=== PATIENT | female | born 1955 | race Caucasian/White ===

== ENCOUNTER 2018-12-02 16:48 | Emergency (ER) | payer MEDICARE, OTHER ==
[~2018-12-02] VITALS: Ht 167.6 cm; Wt 57.6 kg
--- NOTE | 2018-12-02 17:15 | NUR ---
JOEY FROM [facility] C/O HEMATURIA AND FAILURE TO THRIVE x 2 DAYS. PATIENT A/OX2-3 UZBEK SPEAKING. BREATHING EVEN AND UNLABORED, NO SOB NOTED. AWAITING FOR MD COLE.
[2018-12-02] MEDS ORDERED: IV NS 0.9% 500 ML BAG IV ONE (17:30)
[2018-12-02 17:33] LABS: BASOPHILS % (AUTO) 0.7 % (0.0-2.0); EOSINOPHILS % (AUTO) 1.6 % (0.0-6.0); HEMATOCRIT 39 % (33-45); HEMOGLOBIN 13.3 g/dL (11.5-14.8); LYMPHOCYTES # (AUTO) 1.6 /CMM (0.8-4.8); LYMPHOCYTES % (AUTO) 37.6 % (20.0-44.0); MEAN CORPUSCULAR HGB CONC 34 g/dl (31.0-36.0); MEAN CORPUSCULAR VOLUME 99 fL (82-100); MONOCYTES # (AUTO) 0.3 /CMM (0.1-1.30); MONOCYTES % (AUTO) 8.5 % (2.0-12.0); NEUTROPHILS # (AUTO) 2.1 /CMM (1.8-8.9); NEUTROPHILS % (AUTO) 51.6 % (43.0-81.0); PLATELET COUNT (AUTO) 147 /CMM (150-450); RED BLOOD CELL COUNT(AUTO) 3.92 MIL/uL (4.0-5.2); WHITE BLOOD COUNT (AUTO) 4.1 K/uL (4.3-11.0)
[2018-12-02 17:39] LABS: CALCIUM, SERUM 9.9 mg/dL (8.5-10.1); CARBON DIOXIDE 20 mmol/L (21-32); CHLORIDE 105 mmol/L (98-107); CREATININE 1.6 mg/dL (0.6-1.3); GLUCOSE 108 mg/dL (74-106); POTASSIUM 4.3 mmol/L (3.5-5.1); SODIUM SERUM 136 mmol/L (136-145); UREA NITROGEN, BLOOD 29 mg/dL (7-18)
[2018-12-02 17:44] LABS: ALANINE AMINOTRANSFERASE 60 U/L (12-78); ALBUMIN 3.9 g/dL (3.4-5.0); ALKALINE PHOSPHATASE 123 U/L (46-116); ASPARTATE AMINOTRANSFERASE 95 U/L (15-37); BILIRUBIN,DIRECT 0.7 mg/dL (0.0-0.2); BILIRUBIN,TOTAL 1.4 mg/dL (0.2-1.0); LIPASE 168 U/L (73-393); TOTAL PROTEIN, SERUM 10.9 g/dL (6.4-8.2)
[2018-12-02 17:55] LABS: APPEARANCE,URINE Clear (CLEAR); BILIRUBIN,URINE MODERATE (NEGATIVE); BLOOD, URINE Trace-intact Ery/uL (NEGATIVE); COLOR,URINE Yellow (YELLOW); KETONES,URINE Trace (NEGATIVE); LEUKOCYTE ESTERASE ,URINE Trace (NEGATIVE); NITRITE, URINE Negative (NEGATIVE); PROTEIN,URINE 30 mg/dl (NEGATIVE); UGLUCOSE Negative (NEGATIVE)
[2018-12-02 18:07] LABS: BACTERIA,URINE Few /HPF (None Seen); MUCUS,URINE Many /LPF (None Seen); SQUAMOUS EPITHELIAL CELL,UR Moderate /HPF (None Seen); URINE AMORPHOUS URATE Many /HPF (None Seen)
--- NOTE | 2018-12-02 18:09 | NUR ---
CALLED FOR DR ZIEGLER
--- NOTE | 2018-12-02 19:23 | NUR ---
[facility] CAME AND GIVEN REPORT, PATIENT IS STABLE FOR TRANSFER BACK TO FACILITY. VSS. NAD. PERIPHERAL IV REMOVED. PATIENT LEFT THE FACILITY VIA AMBULANCE.
[2018-12-02 19:26] VITALS: BP 130/96
== END 2018-12-02 19:26 ==
LOC: ER 17:00
DX: R53.1 Weakness (principal); E86.0 Dehydration; N28.9 Disorder of kidney and ureter, unspecified; R63.0 Anorexia; K21.9 Gastro-esophageal reflux disease without esophagitis
CPT/HCPCS: 36415; 71045; 73130; 80048; 80076; 81001; 83690; 84484; 85025; 87086; 96360; 99285; A4606; J7040; 81000-TC

== ENCOUNTER 2019-05-12 10:11 | Inpatient (IN) | payer MEDICARE, OTHER ==
[2019-05-12] MEDS ORDERED: PIPERACILLIN /TAZOBACTAM 3.375 G in IV D5W 50 ML IV ONE (10:30)
[2019-05-12] MEDS ORDERED: IV NS 0.9% 1,000 ML BAG IV ONE ×2 (10:30→17:30)
[2019-05-12] MEDS ORDERED: PANTOPRAZOLE 40 MG VIAL IV ONE (10:30)
[2019-05-12] MEDS ORDERED: CRAN3875 PO (11:20)
[2019-05-12] MEDS ORDERED: VORI50TA3 PO (11:20)
[2019-05-12] MEDS ORDERED: CHOL100040 PO (11:20)
[2019-05-12] MEDS ORDERED: OMEG1CAP55 PO (11:20)
[2019-05-12] MEDS ORDERED: DEXT15DR6 OP (11:20)
[2019-05-12] MEDS ORDERED: DARU800T2 PO (11:20)
[2019-05-12] MEDS ORDERED: TYL2T PO (11:20)
[2019-05-12] MEDS ORDERED: LATA2.5D2 OP (11:20)
[2019-05-12] MEDS ORDERED: MAGN400O6 PO (11:20)
[2019-05-12] MEDS ORDERED: MECL-102 PO (11:20)
[2019-05-12] MEDS ORDERED: FOLI1TAB16 PO (11:20)
[2019-05-12] MEDS ORDERED: SODIUM CHORIDE PO (11:20)
[2019-05-12] MEDS ORDERED: LACT1CAP61 PO (11:20)
[2019-05-12] MEDS ORDERED: CALC500T89 PO (11:20)
[2019-05-12] MEDS ORDERED: CITA10TA17 PO (11:20)
[2019-05-12] MEDS ORDERED: HYDR453.3 TP (11:20)
[2019-05-12] MEDS ORDERED: EMTR1TAB12 PO (11:20)
[2019-05-12] MEDS ORDERED: BIOT10004 PO (11:20)
[2019-05-12] MEDS ORDERED: FAMO20TA8 PO (11:20)
[2019-05-12] MEDS ORDERED: MULT-661 PO (11:20)
[2019-05-12] MEDS ORDERED: MAGN400T26 PO (11:20)
[2019-05-12] MEDS ORDERED: LEVO150T8 PO (11:20)
[2019-05-12] MEDS ORDERED: CRAN425C6 PO (11:20)
[2019-05-12] MEDS ORDERED: RITO100T PO (11:20)
[2019-05-12] MEDS ORDERED: ONDA4TAB5 PO (11:20)
[2019-05-12] MEDS ORDERED: ETOMIDATE 2 MG/ML VIAL IV ONE ×2 (12:40→15:00)
[2019-05-12] MEDS ORDERED: SUCCINYLCHOLINE CHLORIDE 20 MG/ML VIAL IV ONE ×2 (12:40→15:00)
[2019-05-12] MEDS ORDERED: MECLIZINE HCL 25 MG TABLET PO PRN (13:00)
[2019-05-12] MEDS ORDERED: MAGNESIUM HYDROXIDE 30 ML UDC PO PRN (13:00)
[2019-05-12] MEDS ORDERED: HYDROCORTISONE 2.5% CREAM 28.4 GM TUBE TP PRN (13:00)
[2019-05-12] MEDS ORDERED: ACETAMINOPHEN 325 MG TABLET PO PRN (13:00)
[2019-05-12] MEDS: PROPOFOL 100 ML IV PRN ×2 (13:29→21:19)
[2019-05-12] MEDS ORDERED: LACTULOSE 10 G/15 ML UDC (PYXIS) PO PRN (13:30)
[2019-05-12] MEDS ORDERED: PROPOFOL 100 ML ONE (13:30)
[2019-05-12] MEDS ORDERED: RITONAVIR 100 MG CAPSULE PO SCH (14:30)
[2019-05-12] MEDS: SODIUM CHLORIDE 1000 MG TABLET PO SCH (16:42)
[2019-05-12] MEDS ORDERED: IV NS 0.9% 1,000 ML BAG IV PRN (17:30)
[2019-05-12] MEDS: IV NS 0.9% 1,000 ML IV PRN (17:53)
[2019-05-12] MEDS: PIPERACILLIN /TAZOBACTAM 3.375 G in IV D5W 100 ML IV SCH (17:59)
[2019-05-12] MEDS ORDERED: LACTULOSE 10 G/15 ML UDC (PYXIS) NG SCH (20:00)
[2019-05-12] MEDS ORDERED: FEE PK DOSING 1 MIN EA MC ONE (20:28)
[2019-05-12] MEDS ORDERED: SODIUM BICARBONATE SYR 50 MEQ/50 ML DISP.SYRIN IV ONE (20:30)
[2019-05-12] MEDS ORDERED: VANCOMYCIN 0.75 GM in IV D5W 250 ML IV SCH (21:00)
[2019-05-12] MEDS ORDERED: LACTULOSE 10 G/15 ML UDC (PYXIS) PO SCH (21:00)
[2019-05-12] MEDS ORDERED: VORICONAZOLE 200 MG TABLET PO SCH (21:00)
[2019-05-12] MEDS: NOREPINEPHRINE 8 MG in IV D5W 500 ML IV PRN (21:16)
[2019-05-12] MEDS ORDERED: VANCOMYCIN 1 GM VIAL ONE (21:54)
[2019-05-12] MEDS ORDERED: LATANOPROST EYE DROP 0.005% 2.5 ML BOTTLE EACHEYE SCH (22:00)
[2019-05-12] MEDS: LACTULOSE 10 G/15 ML UDC (PYXIS) PR SCH (23:12)
[2019-05-13] MEDS ORDERED: LACTULOSE 10 G/15 ML UDC (PYXIS) PR SCH (02:00)
[2019-05-13] MEDS: PIPERACILLIN /TAZOBACTAM 3.375 G in IV D5W 100 ML IV SCH ×3 (02:43→18:11)
[2019-05-13] MEDS ORDERED: NOREPINEPHRINE 4 MG/4 ML AMPUL IV ONE ×2 (03:03→06:58)
[2019-05-13] MEDS: NOREPINEPHRINE 8 MG in IV D5W 500 ML IV PRN ×3 (03:08→10:06)
[2019-05-13] MEDS: LACTULOSE 10 G/15 ML UDC (PYXIS) PR SCH ×3 (05:04→18:12)
[2019-05-13] MEDS: IV NS 0.9% 1,000 ML IV PRN (06:15)
[2019-05-13] MEDS ORDERED: LEVOTHYROXINE SODIUM 75 MCG TABLET PO SCH (07:30)
[2019-05-13] MEDS: DOPamine 800 MG in IV D5W 250 ML IV PRN ×2 (08:43→18:11)
[2019-05-13] MEDS: PROPOFOL 100 ML IV PRN ×3 (08:50→20:14)
[2019-05-13] MEDS ORDERED: CITALOPRAM HYDROBROMIDE 10 MG TABLET PO SCH (09:00)
[2019-05-13] MEDS ORDERED: IV NS 0.9% 500 ML IV ONE (09:00)
[2019-05-13] MEDS ORDERED: FAMOTIDINE (20 MG) 20 MG TABLET PO SCH (09:00)
[2019-05-13] MEDS ORDERED: MAGNESIUM OXIDE 400 MG TABLET PO SCH (09:00)
[2019-05-13] MEDS ORDERED: Sodium Bicarbonate 100 MEQ in IV D5W 1,000 ML IV PRN ×2 (09:00→16:30)
[2019-05-13] MEDS ORDERED: EMTRICITABINE/TENOFOVIR 1 TAB PO SCH (09:00)
[2019-05-13] MEDS ORDERED: PANTOPRAZOLE 40 MG VIAL IV SCH (09:00)
[2019-05-13] MEDS ORDERED: FOLIC ACID 1 MG TABLET PO SCH (09:00)
[2019-05-13] MEDS ORDERED: CALCIUM CARBONATE (1250) 500 MG TABLET PO SCH (09:00)
[2019-05-13] MEDS: SODIUM CHLORIDE 1000 MG TABLET PO SCH ×2 (09:00→16:12)
[2019-05-13] MEDS ORDERED: SODIUM BICARBONATE SYR 50 MEQ/50 ML DISP.SYRIN IV ONE ×2 (09:06→11:15)
[2019-05-13] MEDS ORDERED: LORAZEPAM INJ 2 MG/ML VIAL ONE (09:34)
[2019-05-13] MEDS: NEXIUM 40 MG VIAL IV SCH ×2 (09:39→21:02)
[2019-05-13] MEDS ORDERED: LEVETIRACETAM (500MG) 1,000 MG in IV NS 0.9% 100 ML IV SCH (09:41)
[2019-05-13] MEDS ORDERED: FLUCONAZOLE IN NS 400 MG in PREMIX 1 EA IV SCH ×2 (10:00)
[2019-05-13] MEDS ORDERED: LORAZEPAM INJ 2 MG/ML VIAL IV ONE ×2 (10:00)
[2019-05-13] MEDS ORDERED: IV NS 0.9% 1,000 ML BAG IV STA (10:16)
[2019-05-13] MEDS ORDERED: LEVETIRACETAM (500MG) 1,000 MG in IV NS 0.9% 100 ML IV STA (10:45)
[2019-05-13] MEDS ORDERED: LORAZEPAM INJ 2 MG/ML VIAL IV PRN (11:00)
[2019-05-13] MEDS ORDERED: NS 0.9% IV ONE (12:00)
[2019-05-13] MEDS ORDERED: PHENOBARBITAL SODIUM IV ONE (12:00)
[2019-05-13] MEDS ORDERED: ACYCLOVIR IV 600 MG in IV D5W 100 ML IV SCH (12:00)
[2019-05-13] MEDS ORDERED: MIDAZOLAM HCL 100 MG in IV NS 0.9% 80 ML IV PRN (12:30)
[2019-05-13] MEDS ORDERED: FLUCONAZOLE IN NS,PREMIX 400 MG in PREMIX 1 EA IV SCH ×2 (12:30)
[2019-05-13] MEDS ORDERED: IV NS 0.9% 1,000 ML IV PRN ×2 (12:31→13:00)
[2019-05-13] MEDS ORDERED: LACTULOSE 10 G/15 ML UDC (PYXIS) NG PRN (13:00)
[2019-05-13] MEDS: PHENYLEPHRINE 80 MG in IV D5W 250 ML IV PRN ×2 (14:46→20:12)
[2019-05-13] MEDS: HYDROCORTISONE SOD SUCCINATE 100 MG/2 ML VIAL IV SCH ×2 (16:12→19:30)
[2019-05-13] MEDS ORDERED: VASOPRESSIN INJ 50 UNIT in IV D5W 497.5 ML IV PRN (16:30)
[2019-05-13] MEDS ORDERED: NOREPINEPHRINE 16 MG in IV D5W 500 ML IV PRN (16:30)
[2019-05-13] MEDS ORDERED: IV MANNITOL 20% 250 ML IV SCH (18:00)
[2019-05-13] MEDS ORDERED: FLUDROCORTISONE 0.1 MG TABLET NG SCH (18:00)
[2019-05-13] MEDS ORDERED: VANCOMYCIN 0.75 GM in IV D5W 250 ML IV SCH (21:00)
[2019-05-13] MEDS ORDERED: MORPHINE SULFATE INJ 4 MG/ML DISP.SYRIN IV PRN (21:30)
[2019-05-13] MEDS ORDERED: LEVETIRACETAM (500MG) 500 MG in IV NS 0.9% 100 ML IV SCH (22:00)
== END 2019-05-13 21:40 | disposition expired | DRG 871 ==
DX: A41.9 Sepsis, unspecified organism (principal); G93.41 Metabolic encephalopathy; J96.00 Acute respiratory failure, unspecified whether with hypoxia or hypercapnia; J69.0 Pneumonitis due to inhalation of food and vomit; R65.21 Severe sepsis with septic shock; I21.A1 Myocardial infarction type 2; K72.00 Acute and subacute hepatic failure without coma; N17.0 Acute kidney failure with tubular necrosis; G93.6 Cerebral edema; N39.0 Urinary tract infection, site not specified; E27.40 Unspecified adrenocortical insufficiency; K92.2 Gastrointestinal hemorrhage, unspecified; E87.2 Acidosis; D68.9 Coagulation defect, unspecified; E72.20 Disorder of urea cycle metabolism, unspecified; M62.82 Rhabdomyolysis; Z66 Do not resuscitate; Z51.5 Encounter for palliative care; R57.1 Hypovolemic shock; K21.9 Gastro-esophageal reflux disease without esophagitis; Z87.01 Personal history of pneumonia (recurrent); Z79.899 Other long term (current) drug therapy; Z98.2 Presence of cerebrospinal fluid drainage device; Z86.79 Personal history of other diseases of the circulatory system; E03.9 Hypothyroidism, unspecified; D69.6 Thrombocytopenia, unspecified; F03.90 Unspecified dementia, unspecified severity, without behavioral disturbance, psychotic disturbance, mood disturbance, and anxiety; E88.09 Other disorders of plasma-protein metabolism, not elsewhere classified; E87.5 Hyperkalemia; D50.0 Iron deficiency anemia secondary to blood loss (chronic); G40.401 Other generalized epilepsy and epileptic syndromes, not intractable, with status epilepticus